=== PATIENT | female | born 1990 | race Caucasian/White ===

== ENCOUNTER 2022-10-20 08:35 | Emergency (ER) | payer MEDICAID, SELFPAY ==
[2022-10-20 08:41] VITALS: BP 111/63; PULSE 81; RESP 14; TEMP 36.8; O2SAT 97; BMI 31.4
--- NOTE | 2022-10-20 08:48 | CTR_ITS ---
PROCEDURE INFORMATION: Exam: CT Abdomen And Pelvis Without Contrast Exam date and time: 10/20/2022 8:50 AM Age: 31 years old Clinical indication: Abdominal pain; Patient HX: Right flank pain and hematuria x 5 days; Additional info: Kidney stone TECHNIQUE: Imaging protocol: Computed tomography of the abdomen and pelvis without contrast. Radiation optimization: All CT scans at this facility use at least one of these dose optimization techniques: automated exposure control; mA and/or kV adjustment per patient size (includes targeted exams where dose is matched to clinical indication); or iterative reconstruction. COMPARISON: No relevant prior studies available. RADIATION DOSE METRICS: Total DLP (mGy-cm): 566.47 FINDINGS: Liver: Normal. No mass. Gallbladder and bile ducts: Normal. No calcified stones. No ductal dilation. Pancreas: Normal. No ductal dilation. Spleen: The spleen is borderline enlarged measuring 13.3 cm longitudinally. Adrenal glands: Normal. No mass. Kidneys and ureters: The right pelvic ureter is moderately dilated to the level of a 5.6 x 3.4 mm calculus at the ureterovesical junction. The right kidney shows severe pelviectasis and moderate abdominal ureterectasis with moderate perinephric stranding. Right renal upper pole 1.9 mm calyceal calculus. Left renal calculi (4), the largest in the upper pole 5.7 mm. Mildly dense bilateral renal pyramids. Stomach and bowel: A mid transverse colonic diverticulum is present without evidence of diverticulitis. Appendix: The vermiform appendix is normal. Intraperitoneal space: No free air. No significant fluid collection. Vasculature: Mildly prominent bilateral gonadal veins. Calcified phleboliths are present in the lower pelvis bilaterally. Lymph nodes: No enlarged lymph nodes. Urinary bladder: Unremarkable as visualized. Reproductive: The uterus contains a Mirena IUD. Bones/joints: Bilateral L5 spondylolysis. Soft tissues: Unremarkable. CT/CT kidney stone [id number] IMPRESSION: 1. Right obstructive uropathy secondary to a right ureterovesical junction calculus. 2. Left renal calyceal lithiasis. 3. 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 4. Intrauterine device. 5. Diverticulosis. 6. Borderline splenomegaly.
--- NOTE | 2022-10-20 08:50 | ED_ITS ---
Documented by User: Clari Huitron PA-C 10/20/22 09:53 HPI - Back Pain/Injury General: Chief Complaint: Back Pain/Injury Stated Complaint: kidney stone Time Seen by Provider: 10/20/22 08:36 Source: patient Mode of arrival: ambulatory Limitations: no limitations History of Present Illness: 31-year-old female presents to the ER today for continued right low back/flank pain and nausea for the last almost 2 weeks. Patient reports she began noticing blood in her urine about 2 weeks ago. Patient reports a week ago yesterday she went to the doctor and they did a UA. Patient reports she was told that was probably a kidney stone and told to take something for pain at home. Patient reports by Sunday the pain was severe and she went back. They reported at that time that there was no infection and suggested that she go to the ER. Patient reports she wanted to wait it out at home and by Sunday night and all of Sunday she felt better. Patient reports by Sunday night however the pain had returned. Patient reports she had to leave work early yesterday because the pain was severe again. Patient reports she still has pain at this time in the right low back. She reports the radiating pain around to the front has not happened since Sunday. She denies any more b lood in her urine at this time. Patient denies any history of kidney stones. Patient has an IUD in place. Patient denies any fever or chills. She does have nausea and vomiting for the last 48 hours associated with the increased pain. Review of Systems General: Reports: 10 or more systems reviewed and unremarkable except in HPI and below Physical Exam Const: COMMON NORMALS: no acute distress, average body habitus, patient oriented x3, no limitations, healthy appearing, alert and well nourished Resp: COMMON NORMALS: normal respiratory effort and No retractions AUSCULTATION: no rales, no rhonchi and no wheezes Cardio: COMMON NORMALS: regular rate, regular rhythm and No murmurs present (Cardio) RATE: regular rate RHYTHM: regular rhythm GI: OTHER: Patient has mild right lower quadrant tenderness however is soft and nondistended. Normal active bowel sounds in all 4 quadrants : OTHER: No CVA tenderness noted, right flank tenderness noted on exam. Extremity: COMMON NORMALS: normal to inspection and full ROM Neuro: COMMON NORMALS: patient oriented x3 SENSORIUM/ORIENTATION: Yes alert Psych: COMMON NORMALS: mental status grossly normal, Normal thought process present and cooperative THOUGHT PROCESS: Normal thought process present Skin: COMMON NORMALS: no rashes or lesions noted and no wounds GENERAL SKIN EXAM: no rashes or lesions noted Course ED course: Patient presents the ER for continued kidney stone type symptoms. We will go ahead and start fluids and give Zofran and Toradol for pain. We will get a CT without contrast of the abdomen and pelvis and also do general labs. Vital Signs: Vital signs: Vital Signs Temperature 98.3 F 10/20/22 08:41 Pulse Rate 80 10/20/22 10:00 Respiratory Rate 14 10/20/22 08:41 Blood Pressure 111/63 10/20/22 08:41 Pulse Oximetry 98 10/20/22 10:00 Oxygen Delivery Me thod 10/20/22 08:41 MDM - Back Pain/Injury Medical Decision Making Patient still has blood noted in her urine. There are trace leukocytes however this also appears contaminated. CT does indicate a stone approximately 5 x 3 mm at the junction. Patient also has several stones noted in the left kidney. There is some obstruction noted from the stone located at the junction. Patient's pain is better controlled in the ER at this time. Nausea is better with Zofran. I discussed findings with patient. We will send patient home with Flomax, Zofran, hydrocodone, and Toradol. We will get patient in with urology next week. She should continue to push fluids. If anything changes, return to the ER. Patient verbalized understanding and was in agreement with the treatment plan. Labs 10/20/22 09:15 10/20/22 09:15 Radiology Impressions Abdomen/Pelvis CT 10/20/22 08:48 IMPRESSION: 1. Right obstructive uropathy secondary to a right ureterovesical junction calculus. 2. Left renal calyceal lithiasis. 3. 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 4. Intrauterine device. 5. Diverticulosis. 6. Borderline splenomegaly. Laboratory Results WBC 10.5 10^3/uL (4.0-10.0) H 10/20/22 09:15 RBC 4.15 10^6/uL (4.1-5.3) 10/20/22 09:15 Hgb 12.9 g/dL (11.5-15.3) 10/20/22 09:15 Hct 38.5 % (37.0-47.0) 10/20/22 09:15 MCV 92.8 fl (81-99) 10/20/22 09:15 MCH 31.1 pg (28.0-34.0) 10/20/22 09:15 MCHC 33.5 g/dL (30.0-36.0) 10/20/22 09:15 RDW 11.9 % (12.1-15.1) L 10/20/22 09:15 Plt Count 246 10^3/cmm (130-400) 10/20/22 09:15 MPV 11.8 fL (7.4-10.4) H 10/20/22 09:15 Neut % (Auto) 66.9 % 10/20/22 09:15 Lymph % (Auto) 22.7 % 10/20/22 09:15 Ventura % (Auto) 8.0 % 10/20/22 09:15 Eos % (Auto) 1.4 % 10/20/22 09:15 Baso % (Auto) 0.7 % 10/20/22 09:15 Neut # (Auto) 7.01 10^3/uL (1.8-7.7) 10/20/22 09:15 Lymph # (Auto) 2.4 10^3/uL (0.8-4.8) 10/20/22 09:15 Ventura # (Auto) 0.8 10^3/uL (0.2-0.9) 10/20/22 09:15 Eos # (Auto) 0.2 10^3/uL (0.0-0.8) 10/20/22 09:15 Baso # (Auto) 0.1 10^3/uL (0.0-0.1) 10/20/22 09:15 Nucleated RBC % (auto) 0 % 10/20/22 09:15 Nucleated RBCs # 0.0 /100WBC 10/20/22 09:15 Sodium 135 mmol/L (136-145) L 10/20/22 09:15 Potassium 4.0 mmol/L (3.5-5.1) 10/20/22 09:15 Chloride 100 mmol/L (98-107) 10/20/22 09:15 Carbon Dioxide 26 mmol/L (22-29) 10/20/22 09:15 Anion Gap 13.0 (5-19) 10/20/22 09:15 BUN 17 mg/dL (6-20) 10/20/22 09:15 Creatinine 0.9 mg/dL (0.5-0.9) 10/20/22 09:15 GFR Calculation 73.0 mL/min (90-130) L 10/20/22 09:15 Glucose 118 mg/dL (65-115) H 10/20/22 09:15 Calculated Osmolality 283 mOsm/kg (285-295) L 10/20/22 09:15 Calcium 9.1 mg/dL (8.5-10.5) 10/20/22 09:15 HCG, Qual Negative (Negative) 10/20/22 09:15 Urine Color Yellow (Yellow) 10/20/22 09:15 Urine Appearance Clear (CLEAR) 10/20/22 09:15 Urine pH 7 (5-7) 10/20/22 09:15 Ur Specific Sumner 1.015 (1.005-1.030) 10/20/22 09:15 Urine Protein Neg (Negative) 10/20/22 09:15 Urine Glucose (UA) Norm (Normal) 10/20/22 09:15 Urine Ketones 1+ (Negative) H 10/20/22 09:15 Urine Blood 3+ (Negative) H 10/20/22 09:15 Urine Nitrate Negative (Negative) 10/20/22 09:15 Urine Bilirubin Neg (Negative) 10/20/22 09:15 Urine Urobilinogen Neg mg/dL (Negative) 10/20/22 09:15 Ur Leukocyte Esterase Trace (Negative) H 10/20/22 09:15 Urine RBC 25-40 /hpf (0-2) H 10/20/22 09:15 Urine WBC None /hpf (0-5) 10/20/22 09:15 Ur Squamous Epith Cells 5-10 /hpf (0-5) H 10/20/22 09:15 Amorphous Sediment Not Reportable 10/20/22 09:15 Urine Bacteria 1+ /hpf (NONE) H 10/20/22 09:15 Critical Care Time Critical Care Time: Critical Care Time: No Discharge Plan Discharge Patient Disposition: Home Clinical Impression: Left nephrolithiasis Urolithiasis Qualifiers: Urinary calculus location: lower urinary tract Qualified Code(s): N21.9 - Calculus of lower urinary tract, unspecified Condition: Stable Prescriptions: New Flomax 0.4 mg capsule 0.4 mg PO DAILY Qty: 14 0RF ondansetron HCl 4 mg tablet 4 mg PO Q8H PRN (Reason: nausea and vomiting) 5 Days Qty: 15 0RF ketorolac 10 mg tablet 10 mg PO Q8H PRN (Reason: pain) 3 Days Qty: 12 0RF hydrocodone-acetaminophen 5-325 mg tablet 1 tab PO Q8H PRN (Reason: pain) 5 Days Qty: 15 0RF Discharge Orders: Discharge ED (Routine); Ordered 10/20/22 Ordered By: Clari Huitron Discharge Diet: Usual diet Discharge Activity: Resume usual activity Patient Instructions: Opioid Safety, Pain Management Activity Restrictions/Additional Instructions: Take Flomax as prescribed daily. Take hydrocodone as needed for severe pain. Take ketorolac as needed for pain. Take Zofran for nausea. Push fluids. Follow-up with urology next week. Return to the ER with new or worsening symptoms. Coding Level of Care Code ED Satellite D[employer]airer for [employer]g Fwd Exam Detailed Documented by User: Cullen Burns DO 10/20/22 10:33 HPI - Back Pain/Injury General: Chief Complaint: Back Pain/Injury Stated Complaint: kidney stone Time Seen by Provider: 10/20/22 08:36 Course Vital Signs: Vital signs: Vital Signs Temperature 98.3 F 10/20/22 08:41 Pulse Rate 80 10/20/22 10:00 Respiratory Rate 14 10/20/22 08:41 Blood Pressure 111/63 10/20/22 08:41 Pulse Oximetry 98 10/20/22 10:00 Oxygen Delivery Me thod 10/20/22 08:41 MDM - Back Pain/Injury Medical Decision Making Patient still has blood noted in her urine. There are trace leukocytes however this also appears contaminated. CT does indicate a stone approximately 5 x 3 mm at the junction. Patient also has several stones noted in the left kidney. There is some obstruction noted from the stone located at the junction. Patient's pain is better controlled in the ER at this time. Nausea is better with Zofran. I discussed findings with patient. We will send patient home with Flomax, Zofran, hydrocodone, and Toradol. We will get patient in with urology next week. She should continue to push fluids. If anything changes, return to the ER. Patient verbalized understanding and was in agreement with the treatmen t plan. Chart reviewed and patient discussed with midlevel. Agree with assessment and plan. Medical Records I reviewed the patient's medical records. Labs I reviewed the patient's lab results. 10/20/22 09:15 10/20/22 09:15 Radiology Impressions Abdomen/Pelvis CT 10/20/22 08:48 IMPRESSION: 1. Right obstructive uropathy secondary to a right ureterovesical junction calculus. 2. Left renal calyceal lithiasis. 3. 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 4. Intrauterine device. 5. Diverticulosis. 6. Borderline splenomegaly. Laboratory Results WBC 10.5 10^3/uL (4.0-10.0) H 10/20/22 09:15 RBC 4.15 10^6/uL (4.1-5.3) 10/20/22 09:15 Hgb 12.9 g/dL (11.5-15.3) 10/20/22 09:15 Hct 38.5 % (37.0-47.0) 10/20/22 09:15 MCV 92.8 fl (81-99) 10/20/22 09:15 MCH 31.1 pg (28.0-34.0) 10/20/22 09:15 MCHC 33.5 g/dL (30.0-36.0) 10/20/22 09:15 RDW 11.9 % (12.1-15.1) L 10/20/22 09:15 Plt Count 246 10^3/cmm (130-400) 10/20/22 09:15 MPV 11.8 fL (7.4-10.4) H 10/20/22 09:15 Neut % (Auto) 66.9 % 10/20/22 09:15 Lymph % (Auto) 22.7 % 10/20/22 09:15 Ventura % (Auto) 8.0 % 10/20/22 09:15 Eos % (Auto) 1.4 % 10/20/22 09:15 Baso % (Auto) 0.7 % 10/20/22 09:15 Neut # (Auto) 7.01 10^3/uL (1.8-7.7) 10/20/22 09:15 Lymph # (Auto) 2.4 10^3/uL (0.8-4.8) 10/20/22 09:15 Ventura # (Auto) 0.8 10^3/uL (0.2-0.9) 10/20/22 09:15 Eos # (Auto) 0.2 10^3/uL (0.0-0.8) 10/20/22 09:15 Baso # (Auto) 0.1 10^3/uL (0.0-0.1) 10/20/22 09:15 Nucleated RBC % (auto) 0 % 10/20/22 09:15 Nucleated RBCs # 0.0 /100WBC 10/20/22 09:15 Sodium 135 mmol/L (136-145) L 10/20/22 09:15 Potassium 4.0 mmol/L (3.5-5.1) 10/20/22 09:15 Chloride 100 mmol/L (98-107) 10/20/22 09:15 Carbon Dioxide 26 mmol/L (22-29) 10/20/22 09:15 Anion Gap 13.0 (5-19) 10/20/22 09:15 BUN 17 mg/dL (6-20) 10/20/22 09:15 Creatinine 0.9 mg/dL (0.5-0.9) 10/20/22 09:15 GFR Calculation 73.0 mL/min (90-130) L 10/20/22 09:15 Glucose 118 mg/dL (65-115) H 10/20/22 09:15 Calculated Osmolality 283 mOsm/kg (285-295) L 10/20/22 09:15 Calcium 9.1 mg/dL (8.5-10.5) 10/20/22 09:15 HCG, Qual Negative (Negative) 10/20/22 09:15 Urine Color Yellow (Yellow) 10/20/22 09:15 Urine Appearance Clear (CLEAR) 10/20/22 09:15 Urine pH 7 (5-7) 10/20/22 09:15 Ur Specific Sumner 1.015 (1.005-1.030) 10/20/22 09:15 Urine Protein Neg (Negative) 10/20/22 09:15 Urine Glucose (UA) Norm (Normal) 10/20/22 09:15 Urine Ketones 1+ (Negative) H 10/20/22 09:15 Urine Blood 3+ (Negative) H 10/20/22 09:15 Urine Nitrate Negative (Negative) 10/20/22 09:15 Urine Bilirubin Neg (Negative) 10/20/22 09:15 Urine Urobilinogen Neg mg/dL (Negative) 10/20/22 09:15 Ur Leukocyte Esterase Trace (Negative) H 10/20/22 09:15 Urine RBC 25-40 /hpf (0-2) H 10/20/22 09:15 Urine WBC None /hpf (0-5) 10/20/22 09:15 Ur Squamous Epith Cells 5-10 /hpf (0-5) H 10/20/22 09:15 Amorphous Sediment Not Reportable 10/20/22 09:15 Urine Bacteria 1+ /hpf (NONE) H 10/20/22 09:15 Discharge Plan Discharge Patient Disposition: Home Clinical Impression: Left nephrolithiasis Urolithiasis Qualifiers: Urinary calculus location: lower urinary tract Qualified Code(s): N21.9 - Calculus of lower urinary tract, unspecified Condition: Stable Prescriptions: New Flomax 0.4 mg capsule 0.4 mg PO DAILY Qty: 14 0RF ondansetron HCl 4 mg tablet 4 mg PO Q8H PRN (Reason: nausea and vomiting) 5 Days Qty: 15 0RF ketorolac 10 mg tablet 10 mg PO Q8H PRN (Reason: pain) 3 Days Qty: 12 0RF hydrocodone-acetaminophen 5-325 mg tablet 1 tab PO Q8H PRN (Reason: pain) 5 Days Qty: 15 0RF Discharge Orders: Discharge ED (Routine); Ordered 10/20/22 Ordered By: Clari Huitron Discharge Diet: Usual diet Discharge Activity: Resume usual activity Patient Instructions: Opioid Safety, Pain Management Activity Restrictions/Additional Instructions: Take Flomax as prescribed daily. Take hydrocodone as needed for severe pain. Take ketorolac as needed for pain. Take Zofran for nausea. Push fluids. Follow-up with urology next week. Return to the ER with new or worsening symptoms. Coding Level of Care Code ED [employer] D[employer] Repairer for Reymundo Vázquez Exam Detailed
[2022-10-20] MEDS: sodium chloride 0.9% 500 ML 999 ML IV (09:12)
[2022-10-20] MEDS: ketorolac 30 mg/mL INJ IVP (09:12)
[2022-10-20 09:20] LABS: Basophils # 0.1 10^3/uL (0.0-0.1); Basophils % 0.7 %; Eosinophils # 0.2 10^3/uL (0.0-0.8); Eosinophils % 1.4 %; Hematocrit 38.5 % (37.0-47.0); Hemoglobin 12.9 g/dL (11.5-15.3); Lymphocytes # 2.4 10^3/uL (0.8-4.8); Lymphocytes % 22.7 %; Mean Corpuscular HGB Conc 33.5 g/dL (30.0-36.0); Mean Corpuscular Hemoglobin 31.1 pg (28.0-34.0); Mean Corpuscular Volume 92.8 fl (81-99); Mean Platelet Volume 11.8 fL (7.4-10.4); Monocytes # 0.8 10^3/uL (0.2-0.9); Neutrophils # 7.01 10^3/uL (1.8-7.7); Neutrophils % 66.9 %; Nucleated Red Blood Cells % 0 %; Platelet Count 246 10^3/cmm (130-400); Red Blood Count 4.15 10^6/uL (4.1-5.3); Red Cell Distribution Width 11.9 % (12.1-15.1); White Blood Count 10.5 10^3/uL (4.0-10.0)
[2022-10-20 09:27] LABS: Bilirubin Urine Neg (Negative); Blood Urine 3+ (Negative); Glucose Urine UA Norm (Normal); HCG Qualitative Urine. Negative (Negative); Ketones Urine 1+ (Negative); Nitrate Urine Negative (Negative); Protein Urine Neg (Negative); Specific Gravity, Urine 1.015 (1.005-1.030); Urine Appearance Clear (CLEAR); Urine Color Yellow (Yellow); Urobilinogen Urine Neg (Negative); pH Urine 7 (5-7)
[2022-10-20 09:28] LABS: Add Urine Microscopic? YES; Leukocyte Esterase Urine Trace (Negative)
[2022-10-20] MEDS: ondansetron 2 mg/ML SDV 2 mL 4 MG IVP (09:31)
[2022-10-20 09:41] LABS: RBC Urine 25-40 /hpf (0-2)
[2022-10-20 09:42] LABS: Bacteria Urine 1+ /hpf
[2022-10-20 09:43] LABS: Add Urine Culture? Yes
[2022-10-20 09:44] LABS: Blood Urea Nitrogen 17 mg/dL (6-20); Calcium 9.1 mg/dL (8.5-10.5); Carbon Dioxide 26 mmol/L (22-29); Chloride 100 mmol/L (98-107); Glucose 118 mg/dL (65-115); Osmolality Calculated 283 mOsm/kg (285-295); Sodium 135 mmol/L (136-145)
[2022-10-20 10:00] VITALS: PULSE 80; O2SAT 98
--- NOTE | 2022-10-20 14:40 | DCPLANNER ---
Addendum entered by Marisa Jose 11/01/22 13:27: Patient had a follow up appointment scheduled with urology - patient did attend appointment. Addendum entered by Marisa Jose 10/24/22 12:19: Patient has a follow up appointment scheduled for Sunday, October 25, 2022 at 1:[address] Rodriguez at urology. Clinic will call patient with appointment information. Original Note: manager business systems had message to schedule a follow up appointment for patient with urology. manager business systems sent patients information to the front office staff at urology. Patients information will be printed and reviewed. Clinic will call patient with appointment information.
== END 2022-10-20 10:00 | disposition home or self-care (01) ==
PROVIDERS: Emergency Provider Physician Assistant
DX: N20.2 Calculus of kidney with calculus of ureter (principal)
CPT/HCPCS: 74176; 80048; 81001; 81025; 85025; 87086; 96361; 96374; 96375; 99285; J1885; J2405; J7040

== ENCOUNTER 2022-10-25 12:08 | Outpatient (CLI) | payer MEDICAID, SELFPAY ==
--- NOTE | 2022-10-25 12:12 | XR_ITS ---
WS: [id number] Exam: XR KUB [id number] Date/Time of Exam: 10/25/2022 12:21 PM Reason For Exam: STONES No bowel obstruction or free air. A 5 mm calcification superimposes the left kidney and apparently re presents a known renal stone. No sign of organ enlargement. Regional bony elements appear normal. Num erous phleboliths in the pelvis. There is one of 5 mm triangular calcification in the pelvis slightly to the right of midline that may represent the patient's distal ureteral stone . A T-type IUD seen i n the pelvis. XR/XR KUB [id number] IMPRESSION: 1. No acute abdominal process. 2. 5 mm triangular calcification in the pelvis slightly to the right of midline that may represent the patient's reported stone at the right UVJ. 3. 5 mm calcification superimposes the left kidney and likely represents a know n renal stone.
== END 2022-10-25 12:09 | disposition home or self-care (01) ==
LOC: RAD 12:09
PROVIDERS: Visit Provider Urology
DX: N20.0 Calculus of kidney (principal)
CPT/HCPCS: 74018; 81003